=== PATIENT | female | born 1975 | race Caucasian/White ===

== ENCOUNTER 2017-02-03 20:14 | Emergency (ER) | payer OTHER ==
[~2017-02-03] VITALS: Ht 157.5 cm; Wt 96.2 kg
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
[2017-02-03] MEDS ORDERED: CYCLOBENZAPRINE10 M1 PO (21:50)
[2017-02-03] MEDS ORDERED: MOBIC15 M1 PO (21:50)
[2017-02-03 22:13] VITALS: BP 118/74
[2017-02-03] MEDS ORDERED: LEVOTHYROXINE125 MCG PO (22:15)
== END 2017-02-03 22:48 ==
LOC: ERH 20:14
DX: M54.2 Cervicalgia (principal); V49.40XA Driver injured in collision with unspecified motor vehicles in traffic accident, initial encounter

== ENCOUNTER 2017-05-10 23:27 | Emergency (ER) | payer OTHER ==
[~2017-05-10] VITALS: Ht 157.5 cm; Wt 98.9 kg
[~2017-05-10 23:27] MED LIST: CYCLOBENZAPRINE10 M1 PO; LEVOTHYROXINE125 MCG PO; MOBIC15 M1 PO
--- NOTE | 2017-05-10 23:41 | ED CARDIAC/CP/PALPITATIONS ---
History of Present Illness General Chief Complaint: Chest Pain Stated Complaint: CHEST PAIN Source: patient Exam Limitations: no limitations Vital Signs & Intake/Output Vital Signs & Intake/Output Vital Signs Date Time Temp Pulse Resp B/P B/P Pulse O2 O2 Flow FiO2 Mean Ox Delivery Rate 05/11 0100 97.5 05/11 0100 99 Room Air 05/11 0016 97.5 80 18 123/70 97 Room Air Allergies Coded Allergies: No Known Allergies (05/11/17) Reconcile Medications Levothyroxine Sodium 125 MCG TABLET 0.5 TAB PO DAILY THYROID HEALTH (Reported ) Triage Nurses Notes Reviewed? yes Onset: Abrupt Duration: minute(s): Timing: single episode today Quality/Severity: mild, moderate Location: LEFT SIDED CHEST WALL Radiation: no radiation Activities at Onset: none Prior Chest Pain/Card Workup: no prior chest pain Modifying Factors: Worsens With: palpation. Nitro Today/Relief: no nitro taken today Aspirin Today: 81 mg x 1 Associated Symptoms: LEFT SIDED CHEST WALL TENDERNESS TO PALPATION HPI: 41 yo woman with thyroid issues, presents with left sided chest wall tenderness. "I think it's all stress.... but son surprised me and showed up at home." Past History Travel History Traveled to [place] past 21 day No Medical History Any Pertinent Medical History? see below for history Endocrine: hyperthyroidism Surgical History Surgical History: non-contributory Psychosocial History Who do you live with Spouse What is your primary language R[place]an Family History Hx Contributory? No Review of Systems Review of Systems Constitutional: Reports: no symptoms. EENTM: Reports: no symptoms. Respiratory: Reports: no symptoms. Cardiovascular: Reports: no symptoms. GI: Reports: no symptoms. Genitourinary: Reports: no symptoms. Musculoskeletal: Reports: no symptoms. Skin: Reports: no symptoms. Neurological/Psychological: Reports: no symptoms. Hematologic/Endocrine: Reports: no symptoms. Immunologic/Allergic: Reports: no symptoms. All Other Systems: Reviewed and Negative Physical Exam Physical Exam General Appearance: well developed/nourished, mild distress Head: atraumatic, normal appearance Eyes: Bilateral: normal appearance. Ears, Nose, Throat: normal pharynx, normal ENT inspection Neck: normal inspection, supple, full range of motion Respiratory: normal breath sounds, no respiratory distress, LEFT SIDED CHEST WALL TENDERNESS TO PALPATION Cardiovascular: regular rate/rhythm Gastrointestinal: normal bowel sounds, soft, non-tender Back: normal inspection Extremities: normal inspection Neurologic/Psych: no motor/sensory deficits, awake, alert, oriented x 3 Reflexes: 1+: bicep (R), bicep (L), knee (R), knee (L). Skin: intact, normal color, warm/dry Core Measures ACS in differential dx? No Severe Sepsis Present: No Septic Shock Present: No Progress Differential Diagnosis: AMI, costochondritis, myocarditis, pneumonia, unstable angina Plan of Care: Orders Procedure Date/time Status Add-on Test (ER Only) 05/11 208 Active TROPONIN LEVEL 05/11 208 Complete EKG 05/11 208 Active THYROID STIMULATING HORMONE 05/11 7 Complete LIPID PANEL 05/11 7 Complete TROPONIN LEVEL 05/10 2330 Complete HUMAN BETA HCG SCREEN 05/10 2330 Complete D-DIMER 05/10 2330 Complete COMPREHENSIVE METABOLIC PANEL 05/10 2330 Complete CBC WITHOUT DIFFERENTIAL 05/10 2330 Complete EKG 05/10 2328 Active Laboratory Tests 05/11/17 0232: Troponin I < 0.01 05/11/17 0007: Anion Gap 9, Estimated GFR > 60, BUN/Creatinine Ratio 20.0, Glucose 127 H, Calcium 9.1, Total Bilirubin 0.3, AST 18, ALT 33, Alkaline Phosphatase 64, Troponin I < 0.01, Total Protein 6.4, Albumin 3.8, Globulin 2.6, Albumin/ Globulin Ratio 1.5, Triglycerides 289 H, Cholesterol 224 H, LDL Cholesterol, Calc 124, HDL Cholesterol 43, Cholesterol/HDL Ratio 5 H, TSH 5.050 H, Total Beta HCG NEGATIVE, D-Dimer High Sensitivty < 200, CBC w Diff NO MAN DIFF REQ, RBC 4.46, MCV 79.2 L, MCH 26.3 L, RDW 14.1, MPV 8.0, Gran % 59.4, Lymphocytes % 33.1, Monocytes % 5.5, Eosinophils % 1.7, Basophils % 0.3, Absolute Granulocytes 6.0, Absolute Lymphocytes 3.3, Absolute Monocytes 0.6, Absolute Eosinophils 0.2, Absolute Basophils 0, PUBS MCHC 33.2 Diagnostic Imaging: Viewed by Me: Radiology Read. Discussed w/RAD: Radiology Read. CXR Impression: no acute abnormality, no infiltrates, normal size heart, normal mediastinum Initial ED EKG: normal axis, normal intervals, normal p-waves, normal QRS complex, normal sinus rhythm, NO CHANGE FROM PRIOR Comments: PATIENT: LEATHA FIELDS PRESENT AGE: 41 PATIENT ACCOUNT NO: [id number] : 74 LOCATION: [facility] ORDERING PHYSICIAN: MARIO ALBERTO PINTO MD SERVICE DATE: 05/10/17054 EXAM TYPE: RAD - XRY-PORTABLE CHEST XRAY EXAMINATION: XR PORTABLE CHEST CLINICAL INFORMATION: Chest pain COMPARISON: 03/17/2014 TECHNIQUE: Portable frontal view of the chest was obtained. FINDINGS: The lungs are clear with no focal consolidation. No evidence of pneumothorax, pulmonary edema, or pleural effusions. The cardiomediastinal silhouette is unremarkable. No acute osseous findings. IMPRESSION: No acute cardiopulmonary findings. DICTATED BY: MURTAZA CURTIS MD DATE/TIME DICTATED:05/11/17139 WELLNESS DIRECTOR:COREY DATE/TIME TRANSCRIBED:05/11/17139 CONFIDENTIAL, DO NOT COPY WITHOUT APPROPRIATE AUTHORIZATION. <Electronically signed in Other Vendor System> SIGNED BY: MURTAZA CURTIS MD 05/11/17 0145 Departure Departure Disposition: HOME OR SELF CARE Condition: Stable Clinical Impression Primary Impression: Chest pain Referrals: YAA BOWLING,Zen TURNER (PCP/Family) Departure Forms: Customer Survey General Discharge Information Comments 05/11/17, 3:57... pt feeling well, troponin neg x2, ekg benign... pt feels well and would like to go home. pt referred to cardiology. close follow up advised. Critical Care Note Critical Care Note Critical Care Time: non-applicable
[2017-05-11 00:27] LABS: ABSOLUTE BASOPHIL COUNT 0 /CUMM (0.0-0.2); ABSOLUTE EOSINOPHIL COUNT 0.2 /CUMM (0.0-0.7); ABSOLUTE LYMPH COUNT 3.3 /CUMM (1.2-3.4); ABSOLUTE MONOCYTE COUNT 0.6 /CUMM (0.10-0.60); BASOPHIL % 0.3 % (0.0-2.0); EOSINOPHIL % 1.7 % (0-5); GRANULOCYTE % 59.4 % (42.2-75.2); HEMATOCRIT 35.3 % (37-47); MEAN CORPUSCULAR HGB 26.3 PG (27.0-31.0); MEAN CORPUSCULAR HGB CONC 33.2 G/DL (33.0-37.0); MEAN CORPUSCULAR VOLUME 79.2 FL (81.0-99.0); PLATELET COUNT 257 /CUMM (130-400); RBC DISTRIBUTION WIDTH 14.1 % (11.5-14.5); RED BLOOD CELL CT 4.46 /CUMM (4.20-5.40); WHITE BLOOD CELL COUNT 10.1 /CUMM (4.8-10.8)
--- NOTE | 2017-05-11 01:45 | RADIOLOGY REPORT ---
EXAMINATION: XR PORTABLE CHEST CLINICAL INFORMATION: Chest pain COMPARISON: 03/17/2014 TECHNIQUE: Portable frontal view of the chest was obtained. FINDINGS: The lungs are clear with no focal consolidation. No evidence of pneumothorax, pulmonary edema, or pleural effusions. The cardiomediastinal silhouette is unremarkable. No acute osseous findings. IMPRESSION: No acute cardiopulmonary findings.
[2017-05-11 03:59] VITALS: BP 106/53
== END 2017-05-11 04:02 ==
LOC: ERH 23:27
PROVIDERS: Pediatrics
DX: R07.89 Other chest pain (principal)
CPT/HCPCS: 93005; 93010; 96372; J1885